=== PATIENT | male | born 1995 | race American Indian/Alaskan Native ===

== ENCOUNTER 2019-10-18 00:08 | Emergency (ER) | payer SELFPAY ==
[2019-10-18 00:31] VITALS: BP 118/78
== END 2019-10-18 02:48 | disposition left against medical advice (07) ==
LOC: ED 00:08
DX: M54.2 Cervicalgia (principal); M54.9 Dorsalgia, unspecified; Z53.21 Procedure and treatment not carried out due to patient leaving prior to being seen by health care provider